=== PATIENT | male | born 1990 | race Caucasian/White ===

== ENCOUNTER 2023-12-18 22:12 | Emergency (ER) | payer MEDICAID ==
[~2023-12-18] VITALS: Ht 157.5 cm; Wt 104.8 kg
[2023-12-18 22:32] VITALS: BP 137/85; PULSE 83; RESP 16; TEMP 97.6; O2SAT 98
[2023-12-18 23:07] VITALS: BP 137/85; PULSE 83; RESP 16; TEMP 97.6
[2023-12-18 23:14] VITALS: O2SAT 98
== END 2023-12-19 00:20 | disposition home or self-care (01) ==
LOC: MED 22:12
DX: S00.432A Contusion of left ear, initial encounter (principal); S00.12XA Contusion of left eyelid and periocular area, initial encounter; S50.12XA Contusion of left forearm, initial encounter; S60.222A Contusion of left hand, initial encounter; R07.81 Pleurodynia; Y08.89XA Assault by other specified means, initial encounter; Y93.89 Activity, other specified; Y92.89 Other specified places as the place of occurrence of the external cause; Y99.8 Other external cause status
CPT/HCPCS: 73090; 73130; 99284